=== PATIENT | male | born 1970 | race Caucasian/White ===

== ENCOUNTER → 2022-06-17 | Outpatient (CLI) | payer OTHER | END | disposition home or self-care (01) | LOC: PLD 08:18 → LAB SHORT 08:18 → LAB 08:18 | DX: D48.5 Neoplasm of uncertain behavior of skin (principal) | CPT/HCPCS: 88305 ==

== ENCOUNTER 2023-01-14 11:57 | Day surgery (SDC) | payer OTHER ==
[~2023-01-14] VITALS: Ht 188 cm; Wt 105.0 kg
[2023-01-14 15:10] VITALS: BP 135/86
== END 2023-01-14 15:05 | disposition home or self-care (01) ==
LOC: ORSCSDS 11:57
PROVIDERS: Internal Medicine Gastroenterology
PROC: 0DJD8ZZ Inspection of Lower Intestinal Tract, Via Natural or Artificial Opening Endoscopic (ICD-10-PCS; principal; 2023-01-14 14:00)
DX: Z12.11 Encounter for screening for malignant neoplasm of colon (principal); Z79.899 Other long term (current) drug therapy
CPT/HCPCS: J2704; J7120

== ENCOUNTER 2023-04-02 07:04 | Day surgery (SDC) | payer OTHER ==
[~2023-04-02] VITALS: Ht 188 cm; Wt 108.6 kg
--- NOTE | 2023-04-02 09:35 | NUR ---
04/02/23 0935 Hedy Newsome PT LAYING ON RIGHT SIDE LATERAL ON DICKERSON BAG, PILLOW BETWEEN ARMS ON LEFT ARM BOARD SECURED WITH STRAP, LATERAL LAYING PT IS SECURED ON BEANBAG ON BED WITN TWO SAFETY STRAPS, PILLOW BETWEEN LEGS AND GEL PAD UNDER ANKLES.
[2023-04-02 10:45] VITALS: BP 112/84
--- NOTE | 2023-04-02 11:18 | NUR ---
04/02/23 1118 Hema Almonte IV REMOVED INTACT. SITE WNL.
== END 2023-04-02 11:15 | disposition home or self-care (01) ==
LOC: ORSCSDS 07:04
PROVIDERS: Surgery
PROC: 0JBF0ZX Excision of Left Upper Arm Subcutaneous Tissue and Fascia, Open Approach, Diagnostic (ICD-10-PCS; principal; 2023-04-02 08:45)
DX: D17.1 Benign lipomatous neoplasm of skin and subcutaneous tissue of trunk (principal)
CPT/HCPCS: 88305; 88374; J2001; J2250; J2704; J2795; J3010

== ENCOUNTER 2024-09-19 12:20 | Day surgery (SDC) | payer OTHER ==
[~2024-09-19] VITALS: Ht 157.5 cm; Wt 105.7 kg
[~2024-09-19 12:20] MED LIST: DEPO-TESTO200 MG/1 M IM; Lactated Ringer's 1,000 ML IV ONE; MULTIPLE VITAM1 EACH PO; OMEP20ER PO; propofoL 50 ML IV ONE
[2024-09-19] MEDS ORDERED: Lactated Ringer's 1,000 ML IV ONE (14:23)
[2024-09-19 15:41] VITALS: BP 129/97
== END 2024-09-19 15:30 | disposition home or self-care (01) ==
LOC: ORSCSDS 12:20
PROVIDERS: Internal Medicine Gastroenterology
PROC: 0DJ08ZZ Inspection of Upper Intestinal Tract, Via Natural or Artificial Opening Endoscopic (ICD-10-PCS; principal; 2024-09-19 13:45)
DX: R10.9 Unspecified abdominal pain (principal); K21.00 Gastro-esophageal reflux disease with esophagitis, without bleeding; Z79.899 Other long term (current) drug therapy
CPT/HCPCS: J2704; J7120